=== PATIENT | male | born 1945 | race Two or more races ===

== ENCOUNTER 2024-09-22 12:25 | Emergency (ER) | payer OTHER ==
[~2024-09-22] VITALS: Ht 167.6 cm; Wt 67.1 kg
[2024-09-22] MEDS ORDERED: LISINOPRIL20 MG PO (12:39)
[2024-09-22] MEDS ORDERED: METFORMIN HCL500 M3 PO (12:39)
[2024-09-22] MEDS ORDERED: GLIPIZIDE XL5 MG PO (12:40)
[2024-09-22] MEDS ORDERED: MECLIZINE HCL 25 MG TABLET PO STA (14:16)
[2024-09-22 14:42] LABS: HEMATOCRIT 42.7 % (39.0-48.0); HEMOGLOBIN 14.3 g/dL (13-16.00); MEAN CELL VOLUME 88.5 fL (80.0-100.00); MEAN CORPUSCULAR HEMOGLOBIN 29.7 pg (27.00-32.0); MEAN CORPUSCULAR HGB CONC 33.5 g/dl (32.0-36.0); PLATELET COUNT 224 K/uL (150-450); RED BLOOD COUNT 4.82 M/uL (4.00-6.00)
[2024-09-22 14:56] LABS: CALCIUM 9.8 mg/dL (8.5-10.1); CREATININE SERUM 0.69 mg/dL (0.70-1.30); GFR 110.61; POTASSIUM 4.98 mEq/L (3.5-5.1)
== END 2024-09-22 16:24 | disposition home or self-care (01) ==
LOC: ER 12:26
PROVIDERS: General Practice
DX: R53.81 Other malaise (principal); R42 Dizziness and giddiness; Z88.0 Allergy status to penicillin

== ENCOUNTER 2024-10-14 11:59 | Emergency (ER) | payer OTHER ==
[~2024-10-14] VITALS: Ht 167.6 cm; Wt 65.8 kg
[~2024-10-14 11:59] MED LIST: GLIPIZIDE XL5 MG PO; LISINOPRIL20 MG PO; METFORMIN HCL500 M3 PO
[2024-10-14] MEDS ORDERED: DRAMAMINE25 M1 PO (13:58)
[2024-10-14] MEDS ORDERED: MECLIZINE HCL 12.5 MG TABLET PO ONE ×2 (14:00→14:49)
== END 2024-10-14 15:04 | disposition home or self-care (01) ==
LOC: ER 11:59
DX: R42 Dizziness and giddiness (principal); I10 Essential (primary) hypertension; E11.9 Type 2 diabetes mellitus without complications; Z79.84 Long term (current) use of oral hypoglycemic drugs; Z88.0 Allergy status to penicillin